=== PATIENT | female | born 1955 | race Caucasian/White ===

== ENCOUNTER 2018-08-11 05:58 | Day surgery (SDC) | payer OTHER ==
[~2018-08-11] VITALS: Ht 160 cm; Wt 69.3 kg
[2018-08-11 06:51] VITALS: Ht 160 cm; Wt 69.3 kg
[2018-08-11] MEDS ORDERED: LISI-471 PO (07:08)
[2018-08-11] MEDS ORDERED: LEVO75TA65 PO (07:08)
[2018-08-11 07:50] VITALS: BP 187/82; PULSE 55; RESP 17
[2018-08-11] MEDS ORDERED: FENTAnyl 50 MCG/ML VIAL ONE (09:00)
[2018-08-11] MEDS ORDERED: MIDAZOLAM 1 MG/ML 2 ML INJ ONE (09:00)
== END 2018-08-11 13:19 | disposition home or self-care (01) ==
LOC: GIL 05:58 → SDS 05:58 → GIL 13:19
PROVIDERS: ATTEND Internal Medicine Gastroenterology
DX: Z12.11 Encounter for screening for malignant neoplasm of colon (principal); D12.5 Benign neoplasm of sigmoid colon; K64.8 Other hemorrhoids; I10 Essential (primary) hypertension
CPT/HCPCS: 45380; 88305; J2250; J3010